=== PATIENT | male | born 1965 | race Caucasian/White ===

== ENCOUNTER 2016-08-24 09:59 | Outpatient (CLI) | payer OTHER | END 2016-08-24 10:00 | disposition home or self-care (01) | DX: I10 Essential (primary) hypertension (principal); E78.00 Pure hypercholesterolemia, unspecified ==

== ENCOUNTER 2017-10-19 09:35 | Outpatient (CLI) | payer OTHER ==
[2017-10-19 17:25] LABS: BASOPHILS % (AUTO) 0.6 %; EOSINOPHILS # (AUTO) 0.1 10^3/uL (0.0-0.7); EOSINOPHILS % (AUTO) 1.5 %; HGB - HEMOGLOBIN 13.8 g/dL (14.0-18.0); LYMPHOCYTES # (AUTO) 1.3 10^3/uL (1.5-3.5); LYMPHOCYTES % (AUTO) 24.1 %; MEAN CORPUSCULAR HEMOGLOBIN 31.2 pg (27.0-31.0); MEAN CORPUSCULAR HGB CONC 33.2 g/dL (32.0-36.0); MEAN PLATELET VOLUME 8.9 fL (7.4-11.4); MONOCYTES # (AUTO) 0.3 10^3/uL (0.0-1.0); NEUTROPHILS # (AUTO) 3.7 10^3/uL (1.5-6.6); NEUTROPHILS % (AUTO) 67.8 %; PLT - PLATELET COUNT 197 10^3/uL (130-450); RED BLOOD COUNT 4.43 10^6/uL (4.70-6.10); RED CELL DISTRIBUTION WIDTH 12.9 % (12.0-15.0); WHITE BLOOD COUNT 5.5 x10^3/uL (4.8-10.8)
[2017-10-19 17:52] LABS: ALBUMIN 4.1 g/dL (3.2-5.5); ALBUMIN/GLOBULIN RATIO 1.4 (1.0-2.2); ALKALINE PHOSPHATASE 51 IU/L (42-121); ALT ALANINE AMINOTRANSFERASE 41 IU/L (10-60); AST ASPARTATE AMINOTRANSFERASE 34 IU/L (10-42); BUN - BLOOD UREA NITROGEN 14 mg/dL (6-20); CALCIUM 9.2 mg/dL (8.5-10.3); CARBON DIOXIDE - CO2 26 mmol/L (21-32); CHLORIDE 102 mmol/L (101-111); CHOL/HDL RATIO 2.2 (<5.0); CHOLESTEROL 157 mg/dL; CREATININE 0.8 mg/dL (0.6-1.2); GFR - MDRD 101 (>89); GLUCOSE 104 mg/dL (70-100); HDL CHOLESTEROL 73 mg/dL; LDL CHOLESTEROL,CALCULATED 63 mg/dL; LDL/HDL RATIO 0.9 (<3.6); SODIUM 137 mmol/L (135-145); TOTAL PROTEIN 7.1 g/dL (6.7-8.2); VLDL CHOLESTEROL 21 mg/dL
== END 2017-10-19 09:36 | disposition home or self-care (01) ==
LOC: LAB.F 09:35
PROVIDERS: ATTEND Internal Medicine
DX: I10 Essential (primary) hypertension (principal); E78.00 Pure hypercholesterolemia, unspecified
CPT/HCPCS: 36415; 80053; 80061; 83721; 84443; 85025

== ENCOUNTER 2018-07-30 08:18 | Outpatient (CLI) | payer OTHER ==
[2018-07-30 11:10] LABS: ALBUMIN 4.1 g/dL (3.2-5.5); ALBUMIN/GLOBULIN RATIO 1.2 (1.0-2.2); ALKALINE PHOSPHATASE 59 IU/L (42-121); ALT ALANINE AMINOTRANSFERASE 23 IU/L (10-60); AST ASPARTATE AMINOTRANSFERASE 24 IU/L (10-42); BILIRUBIN,TOTAL 1.3 mg/dL (0.2-1.0); BUN - BLOOD UREA NITROGEN 13 mg/dL (6-20); CALCIUM 9.3 mg/dL (8.5-10.3); CARBON DIOXIDE - CO2 28 mmol/L (21-32); CHLORIDE 99 mmol/L (101-111); CHOL/HDL RATIO 2.5 (<5.0); CHOLESTEROL 219 mg/dL; CREATININE 0.8 mg/dL (0.6-1.2); GFR - MDRD 100 (>89); GLUCOSE 105 mg/dL (70-100); HDL CHOLESTEROL 89 mg/dL; LDL CHOLESTEROL,CALCULATED 114 mg/dL; LDL/HDL RATIO 1.3 (<3.6); SODIUM 137 mmol/L (135-145); TOTAL PROTEIN 7.5 g/dL (6.7-8.2); VLDL CHOLESTEROL 16 mg/dL
== END 2018-07-30 08:19 | disposition home or self-care (01) ==
LOC: LAB.F 08:18
PROVIDERS: ATTEND Internal Medicine
DX: E78.00 Pure hypercholesterolemia, unspecified (principal); I10 Essential (primary) hypertension; Z12.5 Encounter for screening for malignant neoplasm of prostate
CPT/HCPCS: 36415; 80053; 80061; 83721; 84153

== ENCOUNTER 2019-03-08 20:32 | Outpatient (CLI) | payer OTHER | END 2019-03-08 20:33 | disposition critical access hospital (66) | LOC: EMS 20:32 | PROVIDERS: ATTEND Surgery | DX: R41.82 Altered mental status, unspecified (principal); M79.89 Other specified soft tissue disorders | CPT/HCPCS: A0425; A0427 ==

== ENCOUNTER 2019-03-08 21:07 | Emergency (ER) | payer OTHER ==
[2019-03-08] MEDS ORDERED: EPINEPHrine 1 MG/ML AMP IM STA (21:29)
[2019-03-08] MEDS ORDERED: SODIUM CHLORIDE 0.9% 1,000 ML IV ONE ×2 (21:31)
[2019-03-08] MEDS ORDERED: DEXAMETHASONE 10 MG/ML VIAL IVP STA (21:39)
[2019-03-08 21:58] LABS: BASOPHILS % (AUTO) 0.2 %; EOSINOPHILS % (AUTO) 0.2 %; HGB - HEMOGLOBIN 14.2 g/dL (14.0-18.0); LYMPHOCYTES # (AUTO) 1.6 10^3/uL (1.5-3.5); MEAN CORPUSCULAR HEMOGLOBIN 31.8 pg (27.0-31.0); MEAN CORPUSCULAR HGB CONC 32.9 g/dL (32.0-36.0); MEAN CORPUSCULAR VOLUME 96.6 fL (80.0-94.0); MEAN PLATELET VOLUME 10.1 fL (7.4-11.4); MONOCYTES # (AUTO) 0.8 10^3/uL (0.0-1.0); MONOCYTES % (AUTO) 4.7 %; NEUTROPHILS # (AUTO) 13.7 10^3/uL (1.5-6.6); NEUTROPHILS % (AUTO) 84.4 %; PLT - PLATELET COUNT 215 10^3/uL (130-450); RED BLOOD COUNT 4.46 10^6/uL (4.70-6.10); RED CELL DISTRIBUTION WIDTH 12.1 % (12.0-15.0); WHITE BLOOD COUNT 16.3 x10^3/uL (4.8-10.8)
[2019-03-08 22:12] LABS: ALBUMIN 3.7 g/dL (3.2-5.5); ALBUMIN/GLOBULIN RATIO 1.4 (1.0-2.2); BILIRUBIN,TOTAL 0.8 mg/dL (0.2-1.0); CALCIUM 8.8 mg/dL (8.5-10.3); CREATININE 0.8 mg/dL (0.6-1.2); TOTAL PROTEIN 6.3 g/dL (6.7-8.2)
[2019-03-08 22:32] LABS: BILIRUBIN,URINE NEGATIVE (NEGATIVE); GLUCOSE, URINE (UA) NEGATIVE (NEGATIVE); KETONES,URINE (UA) TRACE mg/dL (NEGATIVE); LEUKOCYTE ESTERASE, URINE NEGATIVE (NEGATIVE); MUDS CUTOFF CONCENTRATIONS CUTOFF CONC BELOW:; NITRITE,URINE NEGATIVE (NEGATIVE); OCCULT BLOOD,URINE NEGATIVE (NEGATIVE); PH,URINE 5.5 PH (5.0-7.5); PROTEIN,URINE NEGATIVE (NEGATIVE); UROBILINOGEN,URINE 0.2 (NORMAL) E.U./dL (NORMAL)
--- NOTE | 2019-03-08 22:33 | ED Physician Documentation ---
History of Present Illness - Stated complaint Stated Complaint: WASP STING, HAND SWELLING, LOW BP - Chief complaint Chief Complaint: Allergic Rx - History obtained from History obtained from: Patient, Family, EMS - History of Present Illness Timing: Today Pain level max: 0 Pain level now: 0 Improved by: Vomiting Worsened by: Nothing - Additonal information Additional information: 53-year-old male states that he was stung in the right hand by a wasp earlier to day. While he was at dinner, he felt lightheaded and nauseated. Family states he was "unresponsive" for a few seconds, may be up to 20 to 30 seconds. He then vomited. He then got up went to the bathroom and vomited again he was given 50 mg of Benadryl by EMS. Now feels normal. No seizure activity. No postictal period. No syncope. Review of Systems Ten Systems: 10 systems reviewed and negative Constitutional: denies: Fever, Chills Ears: denies: Ear pain Nose: denies: Rhinorrhea / runny nose, Congestion Respiratory: denies: Cough GI: reports: Nausea, Vomiting. denies: Diarrhea Skin: reports: Rash (Urticaria) Musculoskeletal: denies: Neck pain, Back pain Neurologic: denies: Headache PD PAST MEDICAL HISTORY - Past Medical History Past Medical History: Yes Cardiovascular: Hypertension, High cholesterol - Past Surgical History Past Surgical History: No - Present Medications Home Medications: Ambulatory Orders Medication Instructions Recorded Confirmed EPINEPHrine [Epinephrine] 0.3 mg IJ ONCE PRN #1 auto.injct 03/08/19 predniSONE [Prednisone] 40 mg PO DAILY #4 tablet 03/08/19 - Allergies Allergies/Adverse Reactions: Allergies Allergy/AdvReac Type Severity Reaction Status Date / Time bee venom protein (honey bee) Allergy Edema Verified 03/08/19 21:09 - Social History Does the pt smoke?: Yes Smoking Status: Current every day smoker Does the pt drink ETOH?: Yes Does the pt have substance abuse?: No Substance Use and Type: Marijuana - Immunizations Immunizations are current?: Yes - POLST Patient has POLST: No PD ED PE NORMAL - Vitals Vital signs reviewed: Yes - General General: Alert and oriented X 3, No acute distress, Well developed/nourished - HEENT HEENT: PERRL, Other (Mild posterior oropharyngeal erythema and swelling. No stridor. No wheezing) - Neck Neck: Supple, no meningeal sign - Cardiac Cardiac: RRR, No murmur, Strong equal pulses - Respiratory Respiratory: No respiratory distress, Clear bilaterally - Abdomen Abdomen: Soft, Non tender, Non distended - Derm Derm: Warm and dry, Other (Diffuse urticaria.) - Extremities Extremities: No edema - Neuro Neuro: Alert and oriented X 3 - Psych Psych: Normal mood, Normal affect Results - Vitals Vitals: Vital Signs - 24 hr 03/08/19 03/08/19 03/08/19 21:09 22:58 23:03 Temperature 36.6 C 36.9 C Heart Rate 68 87 Respiratory 16 19 Rate Blood Pressure 122/83 H 107/71 O2 Saturation 100 95 Oxygen O2 Source Room air - EKG (time done) 2134 Rate: Rate (enter#) (76) Rhythm: NSR [place]: Normal Intervals: Normal OR QRS: Normal Ischemia: Normal ST segments - Labs Labs: Laboratory Tests 03/08/19 03/08/19 03/08/19 21:50 21:50 22:15 WBC 16.3 H RBC 4.46 L Hgb 14.2 Hct 43.1 MCV 96.6 H MCH 31.8 H MCHC 32.9 RDW 12.1 Plt Count 215 MPV 10.1 Neut # (Auto) 13.7 H Lymph # (Auto) 1.6 [place] # (Auto) 0.8 Eos # (Auto) 0.0 Baso # (Auto) 0.0 Absolute Nucleated RBC 0.00 Nucleated RBC % 0.0 Sodium 137 Potassium 3.7 Chloride 101 Carbon Dioxide 25 Anion Gap 11.0 BUN 17 Creatinine 0.8 Estimated GFR (MDRD) 100 Glucose 128 H Calcium 8.8 Total Bilirubin 0.8 AST 15 ALT 21 Alkaline Phosphatase 46 Total Protein 6.3 L Albumin 3.7 Globulin 2.6 Albumin/Globulin Ratio 1.4 Lipase 32 Urine Color YELLOW Urine Clarity CLEAR Urine pH 5.5 Ur Specific [place] >=1.030 H Urine Protein NEGATIVE Urine Glucose (UA) NEGATIVE Urine Ketones TRACE Urine Occult Blood NEGATIVE Urine Nitrite NEGATIVE Urine Bilirubin NEGATIVE Urine Urobilinogen 0.2 (NORMAL) Ur Leukocyte Esterase NEGATIVE Ur Microscopic Review NOT INDICATED Urine Culture Comments NOT INDICATED Urine Opiates Screen NEGATIVE Ur Oxycodone Screen NEGATIVE Urine Methadone Screen NEGATIVE Ur Propoxyphene Screen NEGATIVE Ur Barbiturates Screen NEGATIVE Ur Tricyclics Screen NEGATIVE Ur Phencyclidine Scrn NEGATIVE Ur Amphetamine Screen NEGATIVE U Methamphetamines Scrn NEGATIVE U Benzodiazepines Scrn NEGATIVE Urine Cocaine Screen NEGATIVE U Cannabinoids Screen POSITIVE H Ethyl Alcohol 40.8 PD MEDICAL DECISION MAKING - ED course Complexity details: reviewed results, re-evaluated patient, considered differential, d/w patient, d/w family ED course: Patient with what appears to be an allergic reaction, possible vasovagal near syncope earlier today. He was given a dose of epinephrine here for the diffuse urticaria and pharyngeal swelling even though there was no stridor or respiratory distress. Also given dexamethasone. His urticaria improved. No findings on the monitoring and evaluation advisor. We will have him follow-up with his doctor for further care. We will place him on prednisone for the next few days. Will prescribe an EpiPen for home. Patient counseled regarding signs and symptoms for which I believe and urgent re-evaluation would be necessary. Patient with good understanding of and agreement to plan and is comfortable going home at this time This document was made in part using voice recognition software. While efforts are made to proofread this document, sound alike and grammatical errors may occur. Departure - Departure Disposition: 01 Home, Self Care Clinical Impression: Allergic reaction Qualifiers: Encounter type: initial encounter Qualified Code(s): T78.40XA - Allergy, unspecified, initial encounter Syncope Qualifiers: Syncope type: unspecified Qualified Code(s): R55 - Syncope and collapse Condition: Good Instructions: ED Bite Sting Insect Gen Allergic React, ED Syncope Vasovagal Follow-Up: your,doctor in 1 week [Other] Prescriptions: EPINEPHrine [Epinephrine] 0.3 mg IJ ONCE PRN #1 auto.injct PRN Reason: Anaphylaxis predniSONE [Prednisone] 40 mg PO DAILY #4 tablet Comments: Return if you worsen. Continue the steroids for the next 2 days. You can use benadryl as well at home. Discharge Date/Time: 03/08/19 23:05
[2019-03-08 22:35] LABS: CLARITY,URINE CLEAR (CLEAR)
[2019-03-08 22:41] LABS: AMPHETAMINE SCREEN,URINE NEGATIVE (NEGATIVE); BENZODIAZEPINES SCREEN, URINE NEGATIVE (NEGATIVE); COCAINE SCREEN URINE NEGATIVE (NEGATIVE); METHADONE SCREEN, URINE NEGATIVE (NEGATIVE); METHAMPHETAMINES SCREEN, URINE NEGATIVE (NEGATIVE); OPIATE SCREEN, URINE NEGATIVE (NEGATIVE); OXYCODONE SCREEN, URINE NEGATIVE (NEGATIVE); PROPOXYPHENE SCREEN, URINE NEGATIVE (NEGATIVE); TRICYCLIC ANTIDEPRESSANT,URINE NEGATIVE (NEGATIVE)
[2019-03-08 23:00] VITALS: BP 107/71
== END 2019-03-08 23:05 | disposition home or self-care (01) ==
LOC: EDUNIT# → ED 21:07
DX: T63.461A Toxic effect of venom of wasps, accidental (unintentional), initial encounter (principal); R55 Syncope and collapse; R11.2 Nausea with vomiting, unspecified; L50.0 Allergic urticaria; I10 Essential (primary) hypertension; F17.200 Nicotine dependence, unspecified, uncomplicated
CPT/HCPCS: 36415; 80053; 80306; 80320; 81001; 81003; 83690; 85025; 87086; 93005; 96361; 96372; 96374; 99284

== ENCOUNTER 2020-08-27 09:33 | Day surgery (SDC) | payer OTHER ==
[2020-08-27] MEDS ORDERED: LACTATED RINGERS 1,000 ML IV ONE ×2 (09:38→11:13)
[2020-08-27] MEDS ORDERED: MIDAZOLAM 2 MG/2 ML VIAL ONE ×3 (10:05→10:29)
[2020-08-27] MEDS ORDERED: fentaNYL 250 MCG/5 ML VIAL ONE (10:06)
[2020-08-27 11:28] VITALS: BP 131/89
== END 2020-08-27 09:34 | disposition home or self-care (01) ==
LOC: SDS 09:33
PROVIDERS: ATTEND Surgery
PROC: 0DBL8ZZ Excision of Transverse Colon, Via Natural or Artificial Opening Endoscopic (ICD-10-PCS; 2020-08-27)
PROC: 0DBM8ZX Excision of Descending Colon, Via Natural or Artificial Opening Endoscopic, Diagnostic (ICD-10-PCS; principal; 2020-08-27 10:30)
DX: Z12.11 Encounter for screening for malignant neoplasm of colon (principal); D12.3 Benign neoplasm of transverse colon; Z98.0 Intestinal bypass and anastomosis status; I10 Essential (primary) hypertension; Z87.891 Personal history of nicotine dependence
CPT/HCPCS: 45385; J3010; J7120; 88305

== ENCOUNTER 2020-11-22 13:03 | Observation (INO) | payer OTHER ==
[2020-11-22] MEDS ORDERED: DEXAMETHASONE 10 MG/ML VIAL IM STA (13:20)
[2020-11-22] MEDS ORDERED: EPINEPHrine 1 MG/ML AMP IM STA (13:25)
[2020-11-22] MEDS ORDERED: EPINEPHrine 1 MG/ML AMP ONE (13:28)
--- NOTE | 2020-11-22 13:28 | ED Physician Documentation ---
History of Present Illness - Stated complaint Stated Complaint: BEE STING - Chief complaint Chief Complaint: Allergic Rx - History obtained from History obtained from: Patient - Additonal information Additional information: 55-year-old man with past medical history of anaphylaxis to bee stings presents with a bee sting 11:55 AM. He administered himself 0.3 mg of IM epi via EpiPen at 1215 as well as 50 mg of oral Benadryl. On the way here he became nauseous and vomited and briefly may have lost consciousness. He felt that all the lights became brighter in the car and then his friend who is driving him says that he started twitching and staring. He returned to baseline immediately afterward and did not bite his tongue or lose function of his bowel or bladder. At present, patient feels tingling in the lips, nausea, and all over itching. Review of Systems Ten Systems: 10 systems reviewed and negative Constitutional: denies: Fever, Chills Eyes: denies: Loss of vision Throat: reports: Other (no throat tightness) Cardiac: denies: Chest pain / pressure Respiratory: denies: Dyspnea, Cough GI: reports: Nausea, Vomiting. denies: Abdominal Pain Skin: reports: Rash PD PAST MEDICAL HISTORY - Past Medical History Cardiovascular: Hypertension, High cholesterol - Past Surgical History Past Surgical History: No - Present Medications Home Medications: Ambulatory Orders Medication Instructions Recorded Confirmed EPINEPHrine [Epinephrine] 0.3 mg IJ ONCE PRN #1 auto.injct 03/08/19 08/27/20 Atorvastatin [Lipitor] 20 mg PO DAILY 08/27/20 08/27/20 Lisinopril [Zestril] 20 mg PO DAILY 08/27/20 08/27/20 - Allergies Allergies/Adverse Reactions: Allergies Allergy/AdvReac Type Severity Reaction Status Date / Time bee venom protein (honey bee) Allergy Edema Verified 11/22/20 13:09 - Social History Does the pt smoke?: Yes Smoking Status: Current every day smoker Does the pt drink ETOH?: Yes Does the pt have substance abuse?: No - Immunizations Immunizations are current?: Yes - POLST Patient has POLST: No PD ED PE NORMAL - Vitals Vital signs reviewed: Yes - General General: Alert and oriented X 3, No acute distress, Well developed/nourished - HEENT HEENT: Atraumatic, PERRL, EOMI, Moist mucous membranes, Pharynx benign - Neck Neck: Supple, no meningeal sign - Cardiac Cardiac: RRR - Respiratory Respiratory: No respiratory distress, Clear bilaterally - Abdomen Abdomen: Non tender, Non distended - Derm Derm: Other (Full body hives) - Extremities Extremities: No deformity, No edema - Neuro Neuro: Alert and oriented X 3 - Psych Psych: Normal mood, Normal affect Results - Vitals Vitals: Vital Signs - 24 hr 11/22/20 11/22/20 13:09 13:58 Temperature 36.5 C 36.9 C Heart Rate 93 64 Respiratory 16 14 Rate Blood Pressure 112/79 121/86 H O2 Saturation 97 100 Oxygen O2 Source Room air - EKG (time done) 1345 Rate: Rate (enter#) (71) Rhythm: NSR [place]: Normal Intervals: Normal [place], QRS normal Ischemia: Normal ST segments - Labs Labs: Laboratory Tests 11/22/20 14:05 Sodium 135 Potassium 3.8 Chloride 97 L Carbon Dioxide 27 Anion Gap 11.0 BUN 12 Creatinine 0.9 Estimated GFR (MDRD) 87 L Glucose 148 H Calcium 9.0 Total Bilirubin 1.4 H AST 36 ALT 31 Alkaline Phosphatase 55 Total Protein 7.1 Albumin 4.5 Globulin 2.6 Albumin/Globulin Ratio 1.7 Lipase 36 PD MEDICAL DECISION MAKING - ED course ED course: 55-year-old man presents with prolonged anaphylactic reaction not responsive to initial epinephrine. Repeat dose ordered here in the emergency department. We will continue to monitor. 1:45pm - patient with persistent hives, nausea, lightheadedness s/p IM epi 0.3. (second dose after the dose in the field). About 10 minutes after epi administration he became lightheaded, eyes rolled back and he was briefly unresponsive. IV line started, benadryl, pepcid given IV. Will hang epi drip if he has persistent symptoms. 2:30pm - symptoms improved. d/w Dr. Yang for obs. Impression 1 anaphylaxis Departure - Departure Disposition: ED Place in Observation Condition: Stable
[2020-11-22] MEDS ORDERED: SODIUM CHLORIDE 0.9% 1,000 ML IV STA (13:47)
[2020-11-22] MEDS ORDERED: ONDANSETRON 4 MG/2 ML VIAL IVP STA (13:47)
[2020-11-22] MEDS ORDERED: diphenhydrAMINE INJ 50 MG/ML VIAL IVP STA (13:47)
[2020-11-22] MEDS ORDERED: FAMOTIDINE 20 MG/2 ML VIAL IVP STA (13:48)
[2020-11-22] MEDS ORDERED: EPINEPHrine 4 MG in DEXTROSE 5% 246 ML IV STA (13:52)
[2020-11-22 14:11] LABS: BASOPHILS % (AUTO) 0.1 %; EOSINOPHILS % (AUTO) 0.2 %; HCT - HEMATOCRIT 42.8 % (42.0-52.0); HGB - HEMOGLOBIN 14.1 g/dL (14.0-18.0); LYMPHOCYTES # (AUTO) 1.1 10^3/uL (1.5-3.5); LYMPHOCYTES % (AUTO) 12.8 %; MEAN CORPUSCULAR HEMOGLOBIN 31.7 pg (27.0-31.0); MEAN CORPUSCULAR HGB CONC 32.9 g/dL (32.0-36.0); MEAN CORPUSCULAR VOLUME 96.2 fL (80.0-94.0); MEAN PLATELET VOLUME 10.1 fL (7.4-11.4); MONOCYTES # (AUTO) 0.4 10^3/uL (0.0-1.0); MONOCYTES % (AUTO) 4.4 %; NEUTROPHILS # (AUTO) 6.9 10^3/uL (1.5-6.6); NEUTROPHILS % (AUTO) 82.3 %; PLT - PLATELET COUNT 211 10^3/uL (130-450); RED BLOOD COUNT 4.45 10^6/uL (4.70-6.10); WHITE BLOOD COUNT 8.3 x10^3/uL (4.8-10.8)
[2020-11-22 14:25] LABS: ALBUMIN 4.5 g/dL (3.2-5.5); ALBUMIN/GLOBULIN RATIO 1.7 (1.0-2.2); BILIRUBIN,TOTAL 1.4 mg/dL (0.2-1.0); CREATININE 0.9 mg/dL (0.6-1.2); POTASSIUM 3.8 mmol/L (3.5-5.0); TOTAL PROTEIN 7.1 g/dL (6.7-8.2)
[2020-11-22] MEDS ORDERED: ACETAMINOPHEN 325 MG TABLET PO PRN (14:50)
[2020-11-22] MEDS ORDERED: ONDANSETRON 4 MG/2 ML VIAL IVP PRN (14:50)
[2020-11-22] MEDS ORDERED: SODIUM CHLORIDE FLUSH 0.9% 10 ML SYRINGE IVP PRN (14:50)
[2020-11-22] MEDS ORDERED: diphenhydrAMINE INJ 50 MG/ML VIAL IVP PRN (15:02)
--- NOTE | 2020-11-22 15:21 | HISTORY & PHYSICAL EXAMINATION ---
Chief Complaint - Chief Complaint Chief Complaint: bee/wasp sting, anaphylaxis History of Present Illness - Admitted From Admitted From:: [facility] - History Obtained From Records Reviewed: yes History obtained from: patient - History of Present Illness HPI Comment/Other: Patient is 55-year-old male with medical history significant for hyperlipidemia, hypertension and previous anaphylactic reaction to bee sting who presented to the ED after a bee or a was stung him in his backyard. This happened today around 11:45 AM. He was driven to the ED by a friend and arrived around 1232 1 PM. Immediately after the bee sting he was given Benadryl 50 mg po and an Epinephrine shot by his friend. However they question the effectiveness of it be cause its expiration date was May 2020. While he was being driven to the ED by his friend he seemed to blackout then started convulsing and was vomiting. He regained consciousness about 30 seconds later. In the ED he was given another dose of epinephrine IM 1 mg. And then placed in Trendelenburg position. He was also administered IV fluids and placed on supplemental oxygen via nonrebreather. He also received a 10 mg dose of Decadron , 50 mg of Benadryl IV and Pepcid. It is reported that he passed out again in the ED. As a result of his ongoing symptoms he was presented for admission for further treatment and closer monitoring. At the time of my evaluation the patient was Unable to provide a reliable history. He reports a previous occurrence of anaphylaxis to bee sting about 2 years ago but states that it was not as severe as the current reaction. He still has some hives on his body but states that they appear much improved than what they were before. He denies chest pain, dyspnea, abdominal pain, nausea, vomiting, fever or chills. Assessment/plan: 1. Anaphylactic reaction Secondary to bee/wasp sting. The patient received Benadryl 50 mg IV x1, epinephrine 1 mg IM x1, Decadron 10 mg IV x1 and Pepcid. He was also given IV hydration and placed on supplemental oxygen via non rebreather. Patient's vitals are currently stable. He is A&O x4. He is being admitted for closer monitoring and further treatment as needed. 2. Hyperlipidemia Resume patient's atorvastatin when appropriate to do so. 3. Hypertension. Patient is on lisinopril at home and has never had an allergic reaction to it. However given his current presentation with anaphylactic reaction, will hold lisinopril for now. History - Past Medical History Cardiovascular: reports: Hypertension, High cholesterol MRSA Hx?: No - Past Surgical History General: reports: Colonoscopy (with polypectomy) - Family & Social History Family History Comment/Other: His father had an unspecified heart disease. He also had dementia. His mother had dementia. He had a brother with multiple colon polyps. Living arrangement: At home Living Situation: Alone Social History Notes: He does not consume tobacco products. He drinks a glass or 2 of wine daily. He uses marijuana. - POLST Patient has POLST: No POLST Status: Full Code Meds/Allgy - Home Medications Home Medications: Ambulatory Orders Medication Instructions Recorded Confirmed EPINEPHrine [Epinephrine] 0.3 mg IJ ONCE PRN #1 auto.injct 03/08/19 08/27/20 Atorvastatin [Lipitor] 20 mg PO DAILY 08/27/20 08/27/20 Lisinopril [Zestril] 20 mg PO DAILY 08/27/20 08/27/20 - Allergies Allergies/Adverse Reactions: Allergies Allergy/AdvReac Type Severity Reaction Status Date / Time bee venom protein (honey bee) Allergy Edema Verified 11/22/20 13:09 Review of Systems - Constitutional Constitutional: reports: Chills. denies: Fatigue, Fever, Weakness, Poor devang etite - Eyes Eyes: denies: Pain, Dipolpia - Ears, Nose & Throat Ears, Nose & Throat: denies: Ear pain, Sore throat, Hoarseness - Cardiovascular Cariovascular: reports: Syncope. denies: Irregular heart rate, Palpitations, Chest pain, Edema, Lightheadedness - Respiratory Respiratory: reports: Snoring. denies: Cough, Sputum production, Wheezing, SOB at rest, SOB with exertion - Gastrointestinal Gastrointestinal: reports: Nausea, Vomiting. denies: Abdominal pain, Abdominal distention, Constipation, Diarrhea, Coffee grounds emesis, Reflux/heartburn - Genitourinary Genitourinary: denies: Dysuria, Frequency, Urgency, Incontinence, Flank pain - Musculoskeletal Musculoskeletal: denies: Muscle pain, Back pain, Muscle aches, Stiffness - Integumentary Integumentary: reports: Rash (hive) - Neurological Neurological: denies: General weakness, Focal weakness, Headache, Dizziness - Psychiatric Psychiatric: denies: Depression, Anxiety - Endocrine Endocrine: denies: Polyuria, Polydypsia - Hematologic/Lymphatic Hematologic/Lymphatic: denies: Anemia, Bruising, Petechiae Prior Level of Functionality: He is independent of activities of daily living. Exam - Vital Signs Vital Signs: Vital Signs x48h Temp Pulse Resp BP Pulse Ox 11/22/20 13:58 36.9 C 64 14 121/86 H 100 11/22/20 13:09 36.5 C 93 16 112/79 97 - Physical Exam General Appearance: positive: Alert, Mild distress Eyes Bilateral: positive: PERRL, EOMI ENT: positive: No signs of dehydration Neck: positive: No JVD, Trachea midline Respiratory: positive: Chest non-tender, No respiratory distress, Breath sounds nml. negative: Wheezes, Rales, Rhonchi Cardiovascular: positive: Regular rate & rhythm, No murmur Abdomen: positive: Non-tender, No organomegaly, Nml bowel sounds, No distention. negative: Guarding, Rebound Back: positive: Nml inspection Skin: positive: Warm, Dry, Other (hives (clearing up)) Extremities: positive: Non-tender, Full ROM, Nml appearance, No pedal edema Neurologic/Psychiatric: positive: Oriented x3, Mood/affect nml Conclusion/Plan - Lab Results Fish Bones: 11/22/20 14:05 11/22/20 14:05 Core Measures - Anticipated LOS I expect patient to be DC'd or transferred within 96 hours.: Yes - DVT/VTE - Prophylaxis VTE/DVT Device ordered at admit?: Yes
--- NOTE | 2020-11-22 16:21 | PHARMACY PROGRESS NOTE ---
- Best Possible Medication History Admit Date and Time: 11/22/20 1450 Processed by: Pharmacy Medication History completed: Yes Patient Interview: Pt unable to participate Secondary Source(s): Physician records, Pharmacy records, Insurance records As the person ultimately responsible for medication therapy, providers are able to order a medication from an existing home medication list in [facility] via the "Reconcile Routine" prior to Confirmation of that medication by software support engineer. Such practice is discouraged except when the physician, in their clinical judgment, deems that a medical need exists for a medication without regard to previous use.
[2020-11-22 17:24] LABS: B. PARAPERTUSSIS- RESP PCR PAN NOT DETECTED; B. PERTUSSIS- RESP PCR PANEL NOT DETECTED; C. PNEUMONIAE- RESP PCR PANEL NOT DETECTED; CORONAVIRUS 229E-RESP PCR NOT DETECTED; CORONAVIRUS HKU1-RESP PCR NOT DETECTED; CORONAVIRUS NL63-RESP PCR NOT DETECTED; CORONAVIRUS OC43-RESP PCR NOT DETECTED; HUMAN METAPNEUMOVIRUS NOT DETECTED; INFLUENZA A- RESP PCR PANEL NOT DETECTED; INFLUENZA B - RESP PCR PANEL NOT DETECTED; M. PNEUMONIAE- RESP PCR PANEL NOT DETECTED; PARAINFLUENZA VIRUS 1 NOT DETECTED; PARAINFLUENZA VIRUS 2 NOT DETECTED; PARAINFLUENZA VIRUS 3 NOT DETECTED; PARAINFLUENZA VIRUS 4 NOT DETECTED; RHINOVIRUS/ENTEROVIRUS NOT DETECTED; RSV- RESP PCR PANEL NOT DETECTED; SARS-CoV-2 -RESP PCR PANEL NOT DETECTED
[2020-11-22] MEDS: SODIUM CHLORIDE FLUSH 0.9% 10 ML SYRINGE IVP SCH (18:14)
[2020-11-23] MEDS: SODIUM CHLORIDE FLUSH 0.9% 10 ML SYRINGE IVP SCH (01:04)
--- NOTE | 2020-11-23 07:11 | Discharge Plan ---
Discharge Plan Problem Reviewed?: Yes Disposition: Home, Self Care Condition: Stable Prescriptions: EPINEPHrine [Epinephrine] 0.5 mg IM ONCE PRN #2 syr PRN Reason: Anaphylaxis Diet: Regular Activity Restrictions: Activity as Tolerated Instruction Topics: Shock Anaphylactic Dc, EpiPen Auto Injector Dc Health Concerns: You were admitted to the hospital because of anaphylaxis due to bee sting. You were treated with epinephrine with improvement in your symptoms. You were observed overnight and you have remained stable. You can now be discharged home. Plan of Treatment: It is important that you use epinephrine immediately if you get stung by a bee. We have prescribed you an EpiPen. Please make sure that you always have one available and that it is not . Please also follow-up with an fork lift truck operator. You may take second injection after 10 to 15 minutes if you continue to have symptoms. If you have any symptoms whatsoever after a bee sting then you should seek immediate medical attention. Care Goals: The goal is to prevent further episodes of anaphylaxis. Assessment: The patient expressed understanding of the treatment plan. Additional Instructions or Follow Up instructions: Please follow-up with your primary care provider in 1 week. An allergy referral should be considered and it is recommended that you discuss this with your primary care provider. No Smoking: If you smoke, Please STOP! Call for help. Follow-up with: COSME KAM PA-C [Primary Care Provider] -
--- NOTE | 2020-11-23 08:00 | DISCHARGE SUMMARY ---
"Discharge Summary Admit Date: 11/22/20 Discharge Date: 11/23/20 Discharging Provider: José Antonio Mack Primary Care Provider: Lina Camejo Code Status: Attempt Resuscitation Condition at Discharge: Stable Discharge Disposition: 01 Home, Self Care - DIAGNOSES Admission Diagnoses: Anaphylactic reaction to bee sting Hyperlipidemia Hypertension Discharge Diagnoses with Status of Each Condition: Anaphylactic reaction to bee sting - resolved. Hyperlipidemia - stable. Hypertension - stable. - HPI History of Present Illness: H&P per Dr. Yang: Patient is 55-year-old male with medical history significant for hyperlipidemia, hypertension and previous anaphylactic reaction to bee sting who presented to the ED after a bee or a was stung him in his backyard. This happened today around 11:45 AM. He was driven to the ED by a friend and arrived around 1232 1 PM. Immediately after the bee sting he was given Benadryl 50 mg po and an Epinephrine shot by his friend. However they question the effectiveness of it because its expiration date was May 2020. While he was being driven to the ED by his friend he seemed to blackout then started convulsing and was vomiting. He regained consciousness about 30 seconds later. In the ED he was given another dose of epinephrine IM 1 mg. And then placed in Trendelenburg position. He was also administered IV fluids and placed on supplemental oxygen via nonrebreather. He also received a 10 mg dose of Decadron , 50 mg of Benadryl IV and Pepcid. It is reported that he passed out again in the ED. As a result of his ongoing symptoms he was presented for admission for further treatment and closer monitoring. At the time of my evaluation the patient was Unable to provide a reliable history. He reports a previous occurrence of anaphylaxis to bee sting about 2 years ago but states that it was not as severe as the current reaction. He still has some hives on his body but states that they appear much improved than what they were before. He denies chest pain, dyspnea, abdominal pain, nausea, vomiting, fever or chills. - CONSULTS | PROCEDURES Procedures: He was admitted to the floor for observation after he had anaphylaxis secondary to bee sting. He had already received epinephrine, Decadron, Benadryl in the emergency department. He did well overnight with resolution of his symptoms. He was discharged home the following morning. He was provided with a prescription for an epinephrine pen. He was also asked to follow-up with his primary care provider and to have a referral to an box stacker. He was agreeable to this plan. - ALLERGIES Allergies/Adverse Reactions: Allergies Allergy/AdvReac Type Severity Reaction Status Date / Time bee venom protein (honey bee) Allergy Edema Verified 11/22/20 13:09 - MEDICATIONS Home Medications: Ambulatory Orders Medication Instructions Recorded Confirmed Atorvastatin [Lipitor] 20 mg PO QPM 08/27/20 11/22/20 Lisinopril [Zestril] 20 mg PO DAILY 08/27/20 11/22/20 EPINEPHrine [Epinephrine] 0.5 mg IM ONCE PRN #2 syr 11/23/20 - PHYSICAL EXAM AT DISCHARGE General Appearance: positive: No acute distress, Alert Eyes Bilateral: positive: Normal inspection, Conjunctivae nml ENT: positive: ENT inspection nml Neck: positive: Nml inspection Respiratory: positive: No respiratory distress. negative: Wheezes, Rales Cardiovascular: positive: Regular rate & rhythm, No murmur. negative: Tach ycardia Abdomen: positive: Non-tender, No distention. negative: Tenderness, Guarding, Rebound Skin: positive: Warm, Dry Extremities: positive: No pedal edema Neurologic/Psychiatric: positive: Motor nml. negative: Disoriented to person, Disoriented to place Physical Exam Other/Comments: Vital Signs (72 hours) 11/22/20 11/22/20 11/22/20 13:09 13:58 15:12 Temperature 36.5 C 36.9 C 37.0 C Heart Rate 93 64 70 Heart Rate [ Brachial] Respiratory 16 14 16 Rate Blood Pressure 112/79 121/86 H 122/80 Blood Pressure [Right Brachial artery] O2 Saturation 97 100 100 11/22/20 11/22/20 11/22/20 16:00 20:00 21:36 Temperature 36.6 C 36.6 C 36.6 C Heart Rate 88 Heart Rate [ 69 89 Brachial] Respiratory 18 18 18 Rate Blood Pressure Blood Pressure 120/60 126/76 [Right Brachial artery] O2 Saturation 98 98 97 11/23/20 11/23/20 11/23/20 00:00 05:00 08:14 Temperature 36.7 C 36.6 C 36.9 C Heart Rate Heart Rate [ 88 91 67 Brachial] Respiratory 18 18 18 Rate Blood Pressure Blood Pressure 132/75 H 137/86 H 143/94 H [Right Brachial artery] O2 Saturation 95 99 99 - LABS Result Diagrams: 11/22/20 14:05 11/22/20 14:05 - FOLLOW UP Follow Up: He was asked to follow-up with his primary care provider in 1 week and to have a referral to allergy. - TIME SPENT Time Spent in Discharge (Minutes): 31"
[2020-11-23 08:16] VITALS: BP 143/94
== END 2020-11-23 09:45 | disposition home or self-care (01) ==
LOC: ED 13:03 → MS2 14:50
PROVIDERS: ADMIT Internal Medicine; ATTEND Internal Medicine
DX: T63.441A Toxic effect of venom of bees, accidental (unintentional), initial encounter (principal); T78.2XXA Anaphylactic shock, unspecified, initial encounter; X58.XXXA Exposure to other specified factors, initial encounter; E78.5 Hyperlipidemia, unspecified; I10 Essential (primary) hypertension; Z87.892 Personal history of anaphylaxis; Z20.822 Contact with and (suspected) exposure to COVID-19
CPT/HCPCS: 0202U; 36415; 80053; 83690; 85025; 96372; 96374; 96375; 99284; 99285; G0378; J1200

== ENCOUNTER 2020-11-28 17:29 | Emergency (ER) | payer OTHER ==
[2020-11-28] MEDS ORDERED: CHERRY SYRUP 10 ML UDC PO ONE (17:51)
[2020-11-28] MEDS ORDERED: DEXAMETHASONE 10 MG/ML VIAL PO STA (17:51)
--- NOTE | 2020-11-28 17:52 | ED Physician Documentation ---
PD HPI SKIN - Stated complaint Stated Complaint: BEE STING - Chief complaint Chief Complaint: Allergic Rx - History obtained from History obtained from: Patient - Additional information Additional information: Little over a week ago he was stung by wasp and had severe anaphylaxis. He was stung by wasp today and immediately gave himself an EpiPen. He has absolutely no symptoms of the previous anaphylaxis but was told he should seek evaluation. He gave himself the EpiPen at 4:55 PM. Review of Systems Constitutional: reports: Reviewed and negative Cardiac: reports: Reviewed and negative Respiratory: reports: Reviewed and negative PD PAST MEDICAL HISTORY - Past Medical History Cardiovascular: Hypertension, High cholesterol - Past Surgical History Past Surgical History: No General: Colonoscopy - Present Medications Home Medications: Ambulatory Orders Medication Instructions Recorded Confirmed Atorvastatin [Lipitor] 20 mg PO QPM 08/27/20 11/28/20 Lisinopril [Zestril] 20 mg PO DAILY 08/27/20 11/28/20 EPINEPHrine [Epinephrine] 0.5 mg IM ONCE PRN #2 syr 11/23/20 11/28/20 EPINEPHrine [Epinephrine] 0.3 mg IJ ONCE PRN #2 syr 11/28/20 - Allergies Allergies/Adverse Reactions: Allergies Allergy/AdvReac Type Severity Reaction Status Date / Time bee venom protein (honey bee) Allergy Edema Verified 11/28/20 17:47 - Social History Does the pt smoke?: Yes Smoking Status: Former smoker Does the pt drink ETOH?: Yes Does the pt have substance abuse?: No - Immunizations Immunizations are current?: Yes - POLST Patient has POLST: No POLST Status: Full Code PD ED PE NORMAL - Vitals Vital signs reviewed: Yes - General General: Alert and oriented X 3, No acute distress - HEENT HEENT: Pharynx benign - Neck Neck: Supple, no meningeal sign, No bony TTP - Derm Derm: No rash - Neuro Neuro: Alert and oriented X 3, Normal speech Results - Vitals Vitals: Vital Signs - 24 hr 11/28/20 17:43 Temperature 36.5 C Heart Rate 88 Respiratory 15 Rate Blood Pressure 142/86 H O2 Saturation 99 Oxygen O2 Source Room air PD MEDICAL DECISION MAKING - ED course ED course: 55-year-old gentleman with history of hymenoptera anaphylaxis presents with no symptoms after an EpiPen after a hymenoptera sting. We will give him some Decadron and observe him for A while after the EpiPen. He remained asymptomatic during observation. Departure - Departure Disposition: 01 Home, Self Care Clinical Impression: Insect bites and stings Qualifiers: Encounter type: initial encounter Qualified Code(s): W57.XXXA - Bitten or stung by nonvenomous insect and other nonvenomous arthropods, initial encounter Condition: Good Record reviewed to determine appropriate education?: Yes Instructions: ED Bite Sting Insect Gen Allergic React Prescriptions: EPINEPHrine [Epinephrine] 0.3 mg IJ ONCE PRN #2 syr PRN Reason: Allergy Symptoms
[2020-11-28 19:41] VITALS: BP 136/87
== END 2020-11-28 19:41 | disposition home or self-care (01) ==
LOC: ED 17:29
DX: T63.461A Toxic effect of venom of wasps, accidental (unintentional), initial encounter (principal); X58.XXXA Exposure to other specified factors, initial encounter; I10 Essential (primary) hypertension; Z87.891 Personal history of nicotine dependence
CPT/HCPCS: 99282; 99284; A9270

== ENCOUNTER 2022-09-09 09:39 | Outpatient (CLI) | payer OTHER ==
[2022-09-09 09:54] LABS: BASOPHILS % (AUTO) 0.3 %; EOSINOPHILS % (AUTO) 0.4 %; HCT - HEMATOCRIT 45.4 % (42.0-52.0); HGB - HEMOGLOBIN 14.8 g/dL (14.0-18.0); LYMPHOCYTES # (AUTO) 0.9 10^3/uL (1.5-3.5); LYMPHOCYTES % (AUTO) 13.5 %; MEAN CORPUSCULAR HEMOGLOBIN 31.2 pg (27.0-31.0); MEAN CORPUSCULAR HGB CONC 32.6 g/dL (32.0-36.0); MEAN CORPUSCULAR VOLUME 95.6 fL (80.0-94.0); MEAN PLATELET VOLUME 9.6 fL (7.4-11.4); MONOCYTES # (AUTO) 0.3 10^3/uL (0.0-1.0); MONOCYTES % (AUTO) 4.8 %; NEUTROPHILS # (AUTO) 5.4 10^3/uL (1.5-6.6); NEUTROPHILS % (AUTO) 80.9 %; PLT - PLATELET COUNT 242 10^3/uL (130-450); RED BLOOD COUNT 4.75 10^6/uL (4.70-6.10); RED CELL DISTRIBUTION WIDTH 11.9 % (12.0-15.0); WHITE BLOOD COUNT 6.7 x10^3/uL (4.8-10.8)
[2022-09-09 10:12] LABS: ALBUMIN 4.6 g/dL (3.2-5.5); ALBUMIN/GLOBULIN RATIO 1.4 (1.0-2.2); ALKALINE PHOSPHATASE 52 IU/L (42-121); ALT ALANINE AMINOTRANSFERASE 21 IU/L (10-60); AST ASPARTATE AMINOTRANSFERASE 21 IU/L (10-42); BILIRUBIN,TOTAL 0.9 mg/dL (0.2-1.0); BUN - BLOOD UREA NITROGEN 11 mg/dL (6-20); CALCIUM 9.5 mg/dL (8.5-10.3); CARBON DIOXIDE - CO2 31 mmol/L (21-32); CHLORIDE 100 mmol/L (101-111); CHOL/HDL RATIO 1.8 (<5.0); CHOLESTEROL 209 mg/dL; CREATININE 0.8 mg/dL (0.6-1.2); GFR - MDRD 99 (>89); GLUCOSE 119 mg/dL (70-100); HDL CHOLESTEROL 117 mg/dL; LDL CHOLESTEROL,CALCULATED 75 mg/dL; LDL/HDL RATIO 0.6 (<3.6); POTASSIUM 4.5 mmol/L (3.5-5.0); SODIUM 139 mmol/L (135-145); TRIGLYCERIDES 84 mg/dL; VLDL CHOLESTEROL 17 mg/dL
[2022-09-09 10:23] LABS: THYROID STIMULATING HORMONE 1.05 uIU/mL (0.34-5.60)
== END 2022-09-09 09:40 | disposition home or self-care (01) ==
LOC: LAB 09:39
PROVIDERS: ATTEND Nurse Practitioner Acute Care
DX: I10 Essential (primary) hypertension (principal); Z12.5 Encounter for screening for malignant neoplasm of prostate; E78.00 Pure hypercholesterolemia, unspecified
CPT/HCPCS: 36415; 80053; 80061; 83721; 84153; 84443; 85025

== ENCOUNTER 2023-12-07 07:09 | Outpatient (CLI) | payer OTHER ==
[2023-12-07 14:39] LABS: BASOPHILS % (AUTO) 0.4 %; EOSINOPHILS # (AUTO) 0.1 10^3/uL (0.0-0.7); EOSINOPHILS % (AUTO) 1.8 %; HCT - HEMATOCRIT 42.5 % (42.0-52.0); HGB - HEMOGLOBIN 13.6 g/dL (14.0-18.0); LYMPHOCYTES # (AUTO) 0.9 10^3/uL (1.5-3.5); MEAN CORPUSCULAR HEMOGLOBIN 31.3 pg (27.0-31.0); MEAN CORPUSCULAR VOLUME 97.9 fL (80.0-94.0); MEAN PLATELET VOLUME 10.9 fL (7.4-11.4); MONOCYTES # (AUTO) 0.4 10^3/uL (0.0-1.0); MONOCYTES % (AUTO) 7.1 %; NEUTROPHILS % (AUTO) 73.5 %; PLT - PLATELET COUNT 219 10^3/uL (130-450); RED BLOOD COUNT 4.34 10^6/uL (4.70-6.10); RED CELL DISTRIBUTION WIDTH 12.5 % (12.0-15.0); WHITE BLOOD COUNT 5.5 x10^3/uL (4.8-10.8)
[2023-12-07 14:53] LABS: ALBUMIN 4.6 g/dL (3.2-5.5); ALBUMIN/GLOBULIN RATIO 1.8 (1.0-2.2); ALKALINE PHOSPHATASE 62 IU/L (42-121); ALT ALANINE AMINOTRANSFERASE 17 IU/L (10-60); AST ASPARTATE AMINOTRANSFERASE 21 IU/L (10-42); BILIRUBIN,TOTAL 1.1 mg/dL (0.2-1.0); BUN - BLOOD UREA NITROGEN 11 mg/dL (6-20); CALCIUM 9.5 mg/dL (8.5-10.3); CARBON DIOXIDE - CO2 29 mmol/L (21-32); CHLORIDE 102 mmol/L (101-111); CHOL/HDL RATIO 2.3 (<5.0); CHOLESTEROL 189 mg/dL; CREATININE 0.8 mg/dL (0.6-1.3); GFR - MDRD 99 (>89); GLUCOSE 96 mg/dL (74-104); HDL CHOLESTEROL 82 mg/dL; LDL CHOLESTEROL,CALCULATED 72 mg/dL; LDL/HDL RATIO 0.9 (<3.6); POTASSIUM 4.1 mmol/L (3.5-4.5); SODIUM 137 mmol/L (135-145); TOTAL PROTEIN 7.2 g/dL (6.4-8.9); TRIGLYCERIDES 176 mg/dL; VLDL CHOLESTEROL 35 mg/dL
[2023-12-07 15:03] LABS: THYROID STIMULATING HORMONE 1.13 uIU/mL (0.34-5.60)
[2023-12-07 20:08] LABS: ESTIMATED AVERAGE GLUCOSE 105 mg/dL (70-100); HEMOGLOBIN A1c% 5.3 % (4.27-6.07)
== END 2023-12-07 07:10 | disposition home or self-care (01) ==
LOC: LAB.S 07:09
PROVIDERS: ATTEND Nurse Practitioner Acute Care
DX: R73.9 Hyperglycemia, unspecified (principal); Z13.228 Encounter for screening for other metabolic disorders; Z13.220 Encounter for screening for lipoid disorders; Z13.29 Encounter for screening for other suspected endocrine disorder; Z13.0 Encounter for screening for diseases of the blood and blood-forming organs and certain disorders involving the immune mechanism
CPT/HCPCS: 36415; 80053; 80061; 83036; 83721; 84443; 85025